=== PATIENT | male | born 1990 | race Caucasian/White ===

== ENCOUNTER 2017-10-19 22:04 | Emergency (ER) | payer OTHER, SELFPAY ==
[2017-10-19 22:05] VITALS: BP 169/108; PULSE 86; RESP 18; TEMP 36.4; O2SAT 96; BMI 29.9
--- NOTE | 2017-10-19 22:34 | RAD_ITS ---
STUDY: X-RAY - RIGHT HAND REASON FOR EXAM: Male, 27 years old. Trauma TECHNIQUE: 3 view(s) of the hand. COMPARISON: None. FINDINGS: Normal radiocarpal articulation. Normal distal radioulnar joint. Normal visualized carpal bones. Normal carpal articulations Normal carpometacarpal articulation of the thumb. Normal second through fifth carpometacarpal joints. Normal metacarpi. Normal metacarpophalangeal joint of the thumb. Normal interphalangeal joint of the thumb. Normal proximal phalanx of the thumb. There is an acute obliquely oriented comminuted fracture of the mid shaft of the distal phalanx with mild separation of fracture fragments. Normal metacarpophalangeal joints of the second through fifth fingers. Normal proximal and distal interphalangeal joints of the second through fifth fingers. Normal phalanges of the second through fifth fingers. The soft tissue structures are unremarkable. RAD/Hand Min 3 Views IMPRESSION: Acute mildly displaced fracture of the distal phalanx of the thumb Electronically Signed: Bk Moore MD at 23:27 EDT , Service support ,
--- NOTE | 2017-10-19 22:38 | ED.DCSUM_ITS ---
- ER Visit Summary Date of Service: 10/19/17 Chief Complaint: Right thumb injury History of Present Illness: The patient is a 27 M presenting with right thumb injury. Patient was at work and smashed his thumb between a pipe and a piece of metal. This occurred just prior to arrival. He has a laceration to the right thumb. He is unsure when his last tetanus immunization was. He is left- handed. No other injuries. Physical Examination: Vitals are stable. Patient is afebrile. Alert no acute distress. HEENT exam is unremarkable. Lungs are clear and equal bilaterally. Heart is regular rate and rhythm. Extremities right thumb distal tenderness. 2 cm laceration to the volar aspect of the distal right thumb proximal to the nail. Skin is warm and dry. No focal neurologic deficit. Remainder of exam is unremarkable. Emergency Department Course and Treatment: He was given tetanus IM. Wound was copiously irrigated. Right hand x-ray shows acute mildly displaced fracture of the distal phalanx of the thumb. Wound was further irrigated. Laceration was repaired using 2, 4-0 simple sutures. He is put in Ortho-Glass splint. He is given a prescription for Keflex. Advised to follow-up with Dr. William Garcia and [facility]. Advised return to ED if worsening complaints. Disposition: Discharge home Impression: Right thumb distal phalanx fracture with laceration, laceration repair This note was generated with [employer] dictation software. It may contain incorrect words, spelling, and punctuation that were not noted in review of the chart prior to signing ED Disposition - Plan for ED Patient: Chief Complaint: Upper Extremity Injury Referrals: Shaista Garcia MD [STAFF PHYSICIAN] -
[2017-10-19] MEDS: Diphth,Pertuss(Acell),Tet Vac 0.5 ML Vial IM (22:43)
--- NOTE | 2017-10-20 01:04 | DCINST.ED_ITS ---
ED Disposition - Plan for ED Patient: Chief Complaint: Upper Extremity Injury Instructions: ED Fx Finger Open Prescriptions: Hydrocodone Bitart/Apap 5-325 [[place] 5/325] 1 tablet PO Q6H PRN PRN 3 Days #12 tablet PRN Reason: Pain Cephalexin [Keflex] 500 mg PO Q6 #40 capsule Referrals: William Garcia MD [STAFF PHYSICIAN] - MEDRICH[facility] MCKNIGHT [GROUP OF PHYSICIANS] -
[2017-10-20 01:34] VITALS: RESP 18
[2017-10-20] MEDS: Cephalexin 250 MG Capsule 500 MG PO (01:34)
== END 2017-10-20 01:35 | disposition home or self-care (01) ==
LOC: ED 23:23
PROVIDERS: Emergency Provider Emergency Medicine
DX: S62.521B Displaced fracture of distal phalanx of right thumb, initial encounter for open fracture (principal); W23.0XXA Caught, crushed, jammed, or pinched between moving objects, initial encounter; Y93.89 Activity, other specified; Y92.89 Other specified places as the place of occurrence of the external cause; Y99.0 Civilian activity done for income or pay; Z23 Encounter for immunization
CPT/HCPCS: 12001; 29130; 73130; 90471; 90715; 99283